=== PATIENT | female | born 1980 | race Caucasian/White ===

== ENCOUNTER 2018-07-26 19:05 | Inpatient (IN) | payer MEDICAID ==
[2018-07-26] MEDS ORDERED: OXYTOCIN 30 UNITS/LR 1,000 ML IV (19:21)
[2018-07-26] MEDS ORDERED: LIDOCAINE 1% (MPF) 30 ML INJ (19:21)
[2018-07-26] MEDS ORDERED: AMPICILLIN 2 GM/NS (PMX) 100 ML (19:22)
[2018-07-26] MEDS ORDERED: OXYTOCIN 30 UNITS/LR 500 ML IV ×2 (19:30→21:30)
[2018-07-26] MEDS ORDERED: CARBOPROST 250 MCG INJ IM ×2 (19:30→21:30)
[2018-07-26] MEDS ORDERED: MISOPROSTOL 200 MCG TAB PR ×2 (19:30→21:30)
[2018-07-26] MEDS ORDERED: LIDOCAINE 1% (MPF) 30 ML INJ INJ (19:30)
[2018-07-26 19:36] LABS: WHITE BLOOD COUNT 10.4 10^3/ul (4.8-10.8)
[2018-07-26 19:36] LABS: ADD MAN DIFF? NO; BASOPHILS % 0.3 % (0.0-2.0); EOSINOPHILS % 0.2 % (0.0-7.0); HEMATOCRIT 33.3 % (37.0-47.0); HEMOGLOBIN 11.2 g/dl (12.0-16.0); LYMPHOCYTES # 2.2 10^3/ul (0.8-2.9); LYMPHOCYTES % 21.6 % (15.0-51.0); MEAN CORPUSCULAR HEMOGLOBIN 32.2 pg (29.0-33.0); MEAN CORPUSCULAR HGB CONC 33.6 g/dl (32.0-37.0); MEAN CORPUSCULAR VOLUME 95.7 fl (82.0-101.0); MEAN PLATELET VOLUME 10.4 fl (7.4-10.4); MONOCYTE # 0.5 10^3/ul (0.3-0.9); MONOCYTES % 4.7 % (0.0-11.0); NEUTROPHIL # 7.5 10^3/ul (1.6-7.5); NEUTROPHILS % 72.5 % (39.0-77.0); PLATELET COUNT 312 10^3/UL (140-415); RED BLOOD COUNT 3.48 10^6/ul (4.20-5.40); RED CELL DISTRIBUTION WIDTH 12.3 % (11.5-14.5)
[2018-07-26] MEDS: OXYTOCIN 30 UNITS/LR 500 ML IV ×2 (19:38→20:21)
[2018-07-26 19:40] LABS: INR 0.86; PARTIAL THROMBOPLASTIN TIME 23.9 Sec (23.0-35.0); PROTIME 11.8 Sec (11.9-14.9); PT RATIO 0.9
[2018-07-26] MEDS: LACTATED RINGER'S 1,000 ML IV (19:45)
[2018-07-26] MEDS: AMPICILLIN 2 GM/NS (PMX) 100 ML IV (20:12)
[2018-07-26 20:14] LABS: HEPATITIS B SURFACE ANTIGEN NEGATIVE (NEGATIVE)
[2018-07-26] MEDS: METHYLERGONOVINE 0.2 MG INJ IM (20:25)
[2018-07-26] MEDS: IBUPROFEN 600 MG TAB PO (20:25)
[2018-07-26] MEDS: BUTORPHANOL 2 MG INJ IV (20:39)
[2018-07-26] MEDS: LACTATED RINGER'S 1,000 ML IV* (21:14)
[2018-07-26] MEDS: DEXTROSE 5%-LR 1,000 ML IV (21:14)
[2018-07-26] MEDS ORDERED: METHYLERGONOVINE 0.2 MG INJ IM (21:30)
[2018-07-26] MEDS ORDERED: DIPHENHYDRAMINE 50 MG INJ IV (21:30)
[2018-07-26] MEDS ORDERED: ZOLPIDEM 5 MG TAB PO (21:30)
[2018-07-26] MEDS ORDERED: WITCH HAZEL/GLYCERIN PAD PR (21:30)
[2018-07-26] MEDS ORDERED: LANOLIN HPA 1 PKT TOP (21:30)
[2018-07-26] MEDS ORDERED: BENZOCAINE 20% 56 ML SPRAY TOP (21:30)
[2018-07-26] MEDS ORDERED: ONDANSETRON 4 MG INJ IV (21:30)
[2018-07-26] MEDS ORDERED: DIBUCAINE 1% 30 GM OINT TOP (21:30)
[2018-07-26] MEDS ORDERED: ACETAMINOPHEN 325 MG TAB PO (21:30)
[2018-07-26] MEDS ORDERED: SENNA/DOCUSATE NA (8.6MG/50MG) TAB PO (21:30)
[2018-07-26] MEDS: OXYCODONE/ASPIRIN (4.88/325) TAB PO (23:28)
[2018-07-26] MEDS ORDERED: AMPICILLIN 1 GM/NS (PMX) 50 ML IV (23:30)
[2018-07-27] MEDS: IBUPROFEN 600 MG TAB PO ×5 (00:13→23:37)
[2018-07-27] MEDS: LACTATED RINGER'S 1,000 ML IV* ×2 (00:14→13:14)
[2018-07-27] MEDS: OXYCODONE/ASPIRIN (4.88/325) TAB PO ×4 (03:28→21:14)
[2018-07-27 07:46] LABS: ADD MAN DIFF? NO
[2018-07-27 07:51] LABS: BASOPHILS % 0.4 % (0.0-2.0); EOSINOPHILS % 0.2 % (0.0-7.0); HEMATOCRIT 32.2 % (37.0-47.0); HEMOGLOBIN 10.7 g/dl (12.0-16.0); LYMPHOCYTES # 2.2 10^3/ul (0.8-2.9); LYMPHOCYTES % 19.7 % (15.0-51.0); MEAN CORPUSCULAR HEMOGLOBIN 31.6 pg (29.0-33.0); MEAN CORPUSCULAR HGB CONC 33.2 g/dl (32.0-37.0); MEAN PLATELET VOLUME 10.5 fl (7.4-10.4); MONOCYTE # 0.6 10^3/ul (0.3-0.9); MONOCYTES % 5.5 % (0.0-11.0); NEUTROPHIL # 8.1 10^3/ul (1.6-7.5); NEUTROPHILS % 73.6 % (39.0-77.0); PLATELET COUNT 289 10^3/UL (140-415); RED BLOOD COUNT 3.39 10^6/ul (4.20-5.40)
[2018-07-27 21:41] LABS: RAPID PLASMA REAGIN NONREACTIVE (NR)
[2018-07-28] MEDS: OXYCODONE/ASPIRIN (4.88/325) TAB PO (01:23)
[2018-07-28] MEDS: IBUPROFEN 600 MG TAB PO ×2 (05:39→12:01)
[2018-07-28] MEDS: DIPHTH/TET/ACEL PERTUSS (ADULT) 0.5 ML VIAL IM* (09:32)
[2018-07-28] MEDS: MEASLES,MUMPS,RUBELLA VACCINE INJ SC* (09:32)
== END 2018-07-28 13:21 | disposition home or self-care (01) | DRG 807 ==
LOC: L-D 19:05 → PP1 07-27 15:47 → L-D 19:10 → PP1 21:48
PROVIDERS: Obstetrics & Gynecology
PROC: 10E0XZZ Delivery of Products of Conception, External Approach (ICD-10-PCS; principal; 2018-07-26)
DX: O69.1XX0 Labor and delivery complicated by cord around neck, with compression, not applicable or unspecified (principal); Z37.0 Single live birth; Z3A.38 38 weeks gestation of pregnancy
CPT/HCPCS: 85025; 85610; 85730; 86592; 86850; 86900; 86901; 87340